=== PATIENT | male | born 1955 | race Caucasian/White ===

== ENCOUNTER 2018-03-16 09:30 | Inpatient (IN) | payer OTHER ==
[2018-03-31] MEDS ORDERED: METOCLOPRAMIDE 10 MG TABLET PO ONE (06:00)
[2018-03-31] MEDS ORDERED: FAMOTIDINE 20MG TABLET PO ONE (06:00)
[2018-03-31] MEDS ORDERED: CELECOXIB 100 MG CAPSULE PO ONE (06:00)
[2018-03-31] MEDS ORDERED: MECLIZINE 25 MG TABLET PO ONE (06:00)
[2018-03-31] MEDS ORDERED: CEFAZOLIN 2 Gram 2 GM/50 ML BAG IVPB ONE (06:00)
[2018-03-31] MEDS ORDERED: VANCOMYCIN HCL 1,000 MG in DEXTROSE 5 % IN WATER 250 ML IVPB ONE ×2 (06:00)
[2018-03-31 10:36] LABS: ABO GROUP O; ANTIBODY SCREEN NEGATIVE (NEGATIVE); RH TYPE POSITIVE
[2018-03-31] MEDS ORDERED: HYDROMORPHONE HCL 2 MG/ML VIAL IM PRN (13:35)
[2018-03-31] MEDS ORDERED: DIPHENHYDRAMINE HCL 25 MG CAPSULE PO PRN (13:35)
[2018-03-31] MEDS ORDERED: MAGNESIUM HYDROXIDE 30 ML UDC PO PRN (13:35)
[2018-03-31] MEDS ORDERED: AL HYDROX/MAG HYDROX 30ML UD PO PRN (13:35)
[2018-03-31] MEDS ORDERED: NALOXONE 0.4 MG/1 ML VIAL IVP PRN (13:35)
[2018-03-31] MEDS ORDERED: BISACODYL 10 MG SUPP RC PRN (13:35)
[2018-03-31] MEDS ORDERED: TRAMADOL HCL 50 MG TABLET PO PRN (13:35)
[2018-03-31] MEDS ORDERED: ACETAMINOPHEN 325 MG TAB PO PRN (13:35)
[2018-03-31] MEDS ORDERED: KETOROLAC 30 MG/ML VIAL IVP PRN ×2 (13:35)
[2018-03-31] MEDS ORDERED: ONDANSETRON HCL IV 4 MG/2 ML VIAL IVP PRN (13:35)
[2018-03-31] MEDS ORDERED: ZOLPIDEM TARTRATE 5 MG TABLET PO PRN (13:35)
[2018-03-31] MEDS ORDERED: HYDROCODONE/APAP 10/325 TABLET PO PRN (13:35)
[2018-03-31] MEDS ORDERED: ACETAMINOPHEN W/ CODEINE 300MG/60MG TABLET PO PRN ×2 (13:35)
[2018-03-31] MEDS ORDERED: ROPIVACAINE HCL (NAROPIN) /PF 5MG/ML 20ML VIAL IV ONE (14:31)
[2018-03-31] MEDS ORDERED: TRANEXAMIC ACID 1,000 MG/10 ML ML IV ONE ×2 (14:31→15:48)
[2018-03-31] MEDS ORDERED: HYDROMORPHONE PF 1MG/ML **AMPULE IV ONE (14:31)
[2018-03-31] MEDS ORDERED: 0.9 % SODIUM CHLORIDE 10 ML VIAL IVP ONE (14:31)
[2018-03-31] MEDS ORDERED: DEXAMETHASONE 4 MG/ML 1ML VIAL IVP ONE (14:31)
[2018-03-31] MEDS ORDERED: BUPIVACAINE 0.5% W/EPI MPF 30 ML VIAL IVP ONE (15:48)
[2018-03-31] MEDS ORDERED: KETOROLAC 30 MG/ML VIAL IVP ONE (16:21)
[2018-03-31] MEDS ORDERED: PROPOFOL 10 MG/ML VIAL IV ONE (16:21)
[2018-03-31] MEDS ORDERED: MIDAZOLAM HCL 2MG/2ML VIAL IV ONE (16:21)
[2018-03-31] MEDS ORDERED: ONDANSETRON HCL IV 4 MG/2 ML VIAL IVP ONE (16:21)
[2018-03-31] MEDS ORDERED: *PACU ONLY* KETAMINE HCL 10 MG/ML (20ML) VIAL IV ONE (16:21)
[2018-03-31] MEDS: HYDROCODONE/APAP 10/325 TABLET PO PRN ×2 (17:06→22:36)
--- NOTE | 2018-03-31 17:08 | Rehab Evaluation ---
Patient Information - Patient Information Diagnosis: DJD L knee Ordered Treatment: PT Evaluate and Treat Status: Initial Evaluation Surgery: Yes (L TKA) Date of Surgery: 03/31/18 Past Medical/Surgical Hx: PAST MEDICAL/SURGICAL HISTORY Past Surgical History right knee scope hydrocelectomy c scope PMH - Respiratory Hx Respiratory Disorders Yes Hx Asthma Yes: as a child PMH - Cardiovascular Hx Cardiovascular Disorders Yes Hx Hypertension Yes: on meds good control Exercise Tolerance Good Comment: high cholesterol PMH - Neuro Hx Neurological Disorders No PMH - GI Hx Gastrointestinal Disorders No PMH - Hx Genitourinary Disorders No PMH - Endocrine Hx Endocrine Disorders No PMH - Musculoskeletal Hx Musculoskeletal Disorders Yes Hx Arthritis Yes: knees PMH - Psych Hx Psychiatric Problems Yes Hx Anxiety Yes: sometimes Comment: claustrophobia PMH - Hematology/Oncology Hx Hematology/Oncology No Disorders Premorbid Status: Detail (Prior to surgery the patient was independent with all mobility.) Social History: Detail (The paiten lives in a one story home with his spouse with 2 steps, a landing and one step at the enterance. The patient's bathroom is equipped with a walk in shower with a shower bench and hand held shower head and an elevated toilet seat. The patient has a standard walker and has ordered a standard cane.) Precautions: [place], Fall, Other (WBAT on the L LE.) - Time With Patient Total Time Spent With Patient (Min): 30 Treatment Procedures: Detail (Initial Evaluation) Subjective Information - Subjective Information Per Patient (The patient had complaints of L knee pain level 3 at the highest using the 0- 10 pain scale.) Objective Data - Mental Status Patient Orientation: Oriented x3 - Visual Perception Appears within normal limits for therapeutic activities - ROM Not within normal limits (The patient's L knee AROM was not tested secondary to s/p surgery. All other LE AROM is WNL.) - Strength/Tone Not within normal limits (The patient's L LE strength was not tested s/p surgery , however it is WFL ie: the patient is able to acheive a SLR. The patient's R LE strength is generally 4+ to 5/5.) - Bed Mobility Independent (The patient was independent with supine to and from sit transfer and scooting up in bed.) - Transfers Independent (The patient is independent with sit to and from stand transfer.) - Balance Balance Sitting: Good Balance Standing: Good - Sensation Intact - Gait Detail (The patient ambulated with standard walker WBAT on the L LE a distance of 100 feet x 1 with supervision for safety and occasional verbal cues for proper use of walker.) Therapy Assessment - Therapy Assessment Detail (The patient was independent with bed mobility and transfers and required supervision for safety only.) Patient Education - Patient Education Teaching Topic: Exercise/Activity (The patient completed the following TKA exercises: gluteal sets, quad sets, hamstring sets, heel slides, SLR and ankle pumps all x 5-10 reps. The patient showed good understanding of HEP.) Response: Return Demonstration Teaching Method: Discussion, Handout Teaching Recipient: Patient Barriers To Learning: None Problem List - Problem List Physical Therapy Problem List: Detail (1) Decreased L knee AROM and L LE strength as to be expected following surgery. 2) Nonambulatory on stairs) Goals - Goals Physical Therapy Goals: 1) The patient will ambulate on stairs with supervision for safety only. 2) The patient will ambulate independently with standard walker, WBAT on the L LE with consistent proper use of walker. Prognosis - Prognosis Good Plan - Plan Physical Therapy Plan: 1-2 times a day until all inpatient PT goals have been met for gait training on levels and stairs.
[2018-03-31] MEDS: POTASSIUM CHLORIDE/D5-0.9%NACL 20 MEQ/1,000 ML BAG IV SCH ×2 (18:14→21:33)
[2018-03-31] MEDS: CEFAZOLIN 2 Gram 2 GM/50 ML BAG IVPB SCH (20:02)
--- NOTE | 2018-03-31 20:18 | Operative Note ---
DATE OF SURGERY: 03/31/2018 PREOPERATIVE DIAGNOSIS: END-STAGE ARTHROSIS OF THE LEFT KNEE. POSTOPERATIVE DIAGNOSIS: END-STAGE ARTHROSIS OF THE LEFT KNEE. PROCEDURE: Cemented left total knee arthroplasty using [employer] Charisma II components, with a size 7 Oxinium femur, size 7 stemmed tibial baseplate, a 9 mm highly-crosslinked lipped tibial insert, and a 35 mm all- plastic patella. STAFF SURGEON: JAVON WANG M.D. ANESTHESIA: SPINAL. PREPARATION: CHLORAPREP. INDIVIDUAL CONSIDERATIONS: NONE. PROCEDURE: The patient was taken to the Operating Room and placed supine on the operating table. He had the successful induction with spinal anesthetic. His left lower extremity was prepped and then draped in the usual fashion. The patient had a midline approach to the knee. The limb was elevated and the tourniquet was inflated to 215 mmHg. Sharp dissection was carried down through the skin and subcutaneous tissues. Small veins were coagulated with a Bovie. A medial arthrotomy was performed. The patella was everted and the knee was flexed. He had exposed bone in the medial and patellofemoral compartments. The fat pad was resected. The ACL was sacrificed. Provisional anterior meniscectomies were performed and the capsule was removed from the medial proximal tibia. The patient had an intramedullary femoral starting hole. This was done freehand. The intramedullary femoral cutting jig was placed in 7.0 degrees of valgus and adjusted for rotation, secured with pins for a 10 mm resection. The initial transverse cut was then made. The skin guide was then placed in the anterior and posterior pilot can router holes. It was found that a size 7 would be appropriate. The anterior and posterior cuts followed by chamfer cuts were made , osteophytes were removed, and a size 7 trial was placed and found to fit well. The tibia was brought forward and the remainder of the meniscal remnants were removed with a Bovie. The extra-articular tibial cutting jig was placed. It was cut in neutral with a 3-degree AP slope. Care was taken to adjust for rotation and flexion using the extra-articular alignment guide and bony landmarks. It was set for a 9 mm resection, keyed off the high lateral side, and secured with pins. When cutting the tibia, care was taken to preserve the PCL insertion on the tibia. After removing osteophytes, it was found that a size 7 would be appropriate. It was adjusted for rotation and secured with pins. With a 9 mm trial and the femoral trial, there was excellent motion and stability, ligamentous balance, rotation, and alignment were normal. The femoral pilot can router holes were impacted and the triflange tibial stamp was impacted and these trial components were removed. The patient had a thick patella and roughly 9 mm of bone was removed freehand. I then put the tourniquet down and hemostasis was obtained with a Bovie and it was placed back up again. We then thoroughly irrigated out the knee with pulsatile Betadine and saline to remove any visual or palpable debris. Bony surfaces were then dried. A size 7 stemmed tibial baseplate was cemented into place, followed by impaction of a 9 mm lipped highly-crosslinked tibial insert, followed by cementing in the size 7 Oxinium femur, followed by cementing in the 35 mm all-plastic patella. Implant surfaces were compressed, excess cement was removed, and after the cement had set, there was excellent motion and stability , ligamentous balance, rotation and alignment and patellofemoral tracking were normal and no lateral release was required. The tourniquet was let down and hemostasis was obtained with the Bovie. The periosteum and skin and subcu were infiltrated with 30 mL of 0.5% Marcaine with Epinephrine. The capsule was then closed with a running #2 Quill, the subcu was closed in layers with a running 0 Quill, and the skin was closed with aroldo. The patient did receive a gram of Tranexamic Acid IV preoperatively. I mixed a gram of Tranexamic Acid with 30 mL of saline and injected it into the knee through a sterile #18 gauge needle and a sterile Bulkee compressive GERRI-type dressing was applied. The patient tolerated the procedure well. Needle and sponge counts were correct. The estimated blood loss was 100 mL and he was taken back to Recovery in good condition. There were no complications. JOB NUMBER: [id number] MTDD
[2018-03-31] MEDS: DOCUSATE SODIUM 100 MG CAPSULE PO SCH (21:28)
[2018-04-01] MEDS: CEFAZOLIN 2 Gram 2 GM/50 ML BAG IVPB SCH ×3 (03:25→13:24)
[2018-04-01] MEDS: POTASSIUM CHLORIDE/D5-0.9%NACL 20 MEQ/1,000 ML BAG IV SCH ×2 (05:51→14:53)
[2018-04-01 06:33] LABS: HEMATOCRIT 32.8 % (42.0-52.0)
[2018-04-01 07:01] LABS: BLOOD UREA NITROGEN 13 mg/dL (8-23); CREATININE 0.8 mg/dL (0.7-1.2); EST GLOMERULAR FILTRATION RATE > 60 mL/min; GLUCOSE,RANDOM 121 mg/dL (74-109)
[2018-04-01] MEDS: HYDROCODONE/APAP 10/325 TABLET PO PRN ×2 (09:09→14:55)
[2018-04-01] MEDS: DOCUSATE SODIUM 100 MG CAPSULE PO SCH (09:10)
[2018-04-01] MEDS ORDERED: MULTIVITAMINS/MINERALS TABLET PO SCH (10:00)
[2018-04-01] MEDS ORDERED: PATIENT OWN MED: AMLODIPINE 5 MG PO SCH (10:00)
[2018-04-01] MEDS ORDERED: FERROUS SULFATE 325 MG TAB PO SCH (10:00)
[2018-04-01] MEDS ORDERED: HCTZ PO SCH (10:00)
[2018-04-01] MEDS ORDERED: LOSARTAN PO SCH (10:00)
[2018-04-01] MEDS ORDERED: RIVAROXABAN 10 MG TABLET PO SCH (10:00)
--- NOTE | 2018-04-01 10:41 | Physical Therapy Tx Note ---
Physical Therapy Tx Note - Treatment Note Tolerated: Good Total Time Spent With Patient: 25 Physical Therapy Tx Note: Detail (The patient was in bed and had minimal complaints of pain when PT arrived. The patient completed all his TKA exercises using proper technique. The patient ambulated with standard walker a distance of 200 feet x 1 independently WBAT on the L LE. The patient ambulated on 3 steps with use one railing and folded walker with supervision for safety only. The patient has met all inpatient PT goals.) Physical Therapy Problem List: Detail (1) Decreased L knee AROM and L LE strength as to be expected following surgery. 2) Nonambulatory on stairs) Physical Therapy Goals: GOALS MET: 1) The patient will ambulate on stairs with supervision for safety only. 2) The patient will ambulate independently with standard walker, WBAT on the L LE with consistent proper use of walker. Prognosis: Good Physical Therapy Plan: The patient has met all inpatient PT goals and is discharged from inpt. PT. The patient is to continue with a Home Health PT.
--- NOTE | 2018-04-01 14:40 | Rehab Evaluation ---
Patient Information - Patient Information Diagnosis: DJD L knee Ordered Treatment: OT Evaluate and Treat Status: Initial Evaluation Surgery: Yes (L TKA) Date of Surgery: 03/31/18 Past Medical/Surgical Hx: PAST MEDICAL/SURGICAL HISTORY Past Surgical History right knee scope hydrocelectomy c scope PMH - Respiratory Hx Respiratory Disorders Yes Hx Asthma Yes: as a child PMH - Cardiovascular Hx Cardiovascular Disorders Yes Hx Hypertension Yes: on meds good control Exercise Tolerance Good Comment: high cholesterol PMH - Neuro Hx Neurological Disorders No PMH - GI Hx Gastrointestinal Disorders No PMH - Hx Genitourinary Disorders No PMH - Endocrine Hx Endocrine Disorders No PMH - Musculoskeletal Hx Musculoskeletal Disorders Yes Hx Arthritis Yes: knees PMH - Psych Hx Psychiatric Problems Yes Hx Anxiety Yes: sometimes Comment: claustrophobia PMH - Hematology/Oncology Hx Hematology/Oncology No Disorders Premorbid Status: Detail (Prior to surgery the patient was independent with all mobility and I/ADL tasks.) Social History: Detail (The patient lives in a one story home with his spouse with 2 steps, a landing, and one additional step at the garage enterance. The patient's bathroom is equipped with a walk in shower, shower bench, hand held shower head, and an elevated toilet seat. The patient has a standard walker, leg resident care aide, shoe horn, and has ordered a standard cane. Pt's daughter will be there to assist if needed.) Precautions: [place], Fall, Other (WBAT on the L LE.) - Time With Patient Total Time Spent With Patient (Min): 20 Treatment Procedures: Detail (OT Evaluation: Low) Subjective Information - Subjective Information Per Patient (Pt stated he is going to receive home health care upon returning home.) Objective Data - Pain Pain Present: Yes Pain Scale Used: Numeric (1 - 10) (2/10 at rest and 5/10 after completing ADL tasks) - Mental Status Patient Orientation: Oriented x3 - Visual Perception Appears within normal limits for therapeutic activities - ROM Within normal limits (Informally tested: Pt was able to participate in ADL tasks ) - Strength/Tone Within normal limits (Informally tested: Pt was able to participate in ADL tasks ) - Coordination Appears within normal limits for therapeutic activities - Bed Mobility Independent (Modified Ind. as head of bed was raised.) - Transfers Independent (EOB Sit<>stand with standard walker Indp. with one VC for proper hand placement upon sitting.) - Balance Balance Sitting: Good Balance Standing: Fair (Utilizes standed walker for safety) - ADL's/IADL's Detail (Educated pt on adaptive LB dressing techniques to ensure safety and independence. Pt demonstrated understanding of adaptive LB dressing techniques while doffing socks and donning shoes and shorts. Pt was also Indp. with UB dressing. Standing toileting (without UE support) and hygeine (hand washing) Indp. with standard walker. Reviewed with pt and he was able to verbalize showering technique.) Therapy Assessment - Therapy Assessment Detail (Educated/trained pt in adaptive LB dressing techniques and participated in various ADL tasks for safety and independence. Pt is Indp. and safe with LB dressing. Pt lives with spouse who is currently out of town but has daughter available to help if needed. Pt no longer requires inpatient OT services at this time.) Patient Education - Patient Education Teaching Method: Discussion Teaching Recipient: Patient Barriers To Learning: None Problem List - Problem List Physical Therapy Problem List: Detail (1) Decreased L knee AROM and L LE strength as to be expected following surgery. 2) Nonambulatory on stairs) Goals - Goals Physical Therapy Goals: GOALS MET: 1) The patient will ambulate on stairs with supervision for safety only. 2) The patient will ambulate independently with standard walker, WBAT on the L LE with consistent proper use of walker. Prognosis - Prognosis Good Plan - Plan Physical Therapy Plan: The patient has met all inpatient PT goals and is discharged from inpt. PT. The patient is to continue with a Home Health PT. Occupational Therapy Plan: D/C from inpatient OT services at this time. Pt stated he had no questions or concerns upon returning home.
--- NOTE | 2018-04-01 19:49 | Discharge Summary ---
DATE OF ADMISSION: 03/31/2018 DATE OF DISCHARGE: 04/01/2018 DATE OF SURGERY: 03/31/2018 HISTORY: Mr. Muller is a delightful 62-year-old male who presents with end- stage arthrosis of his left knee. He was admitted after left total knee arthroplasty. Postoperatively he did well. His hospital course was unremarkable. Discharge hemoglobin was 11. He did not require transfusion. DISCHARGE INSTRUCTIONS: The plan is to discharge him to home in the care of his family. Home PT and Visiting Nurse has been arranged. He will be given [place] for pain and Xarelto followed by Aspirin for DVT prophylaxis. His sutures will be removed in two weeks. He will follow-up in my office in four weeks. His discharge condition was good. FINAL DIAGNOSIS/PRIMARY DIAGNOSIS: END-STAGE ARTHROSIS OF THE LEFT KNEE. OPERATIONS AND PROCEDURES: CEMENTED LEFT TOTAL KNEE ARTHROPLASTY. JOB NUMBER: [id number] MTDD
[2018-04-01] MEDS ORDERED: PRAVASTATIN 80 MG PO SCH (22:00)
[2018-04-01] MEDS ORDERED: ASPIRIN 81 MG TABEC PO SCH (22:00)
== END 2018-04-01 18:30 | disposition home health service (06) | DRG 470 ==
LOC: MEDSURG 03-31 08:56
PROVIDERS: ADMIT Orthopaedic Surgery; ATTEND Orthopaedic Surgery
PROC: 0SRD069 Replacement of Left Knee Joint with Oxidized Zirconium on Polyethylene Synthetic Substitute, Cemented, Open Approach (ICD-10-PCS; principal; 2018-03-31 11:00)
DX: M17.12 Unilateral primary osteoarthritis, left knee (principal); I10 Essential (primary) hypertension; E78.00 Pure hypercholesterolemia, unspecified
CPT/HCPCS: 80048; 85014; 85018; 86850; 86900; 86901; 97530; J1170; J1885; J2405; J3480; J7060

== ENCOUNTER 2019-11-23 12:04 | Day surgery (SDC) | payer OTHER ==
[~2019-11-23 12:04] MED LIST: CEFAZOLIN 2 Gram 2 GM/50 ML BAG IVPB ONE; CELECOXIB 100 MG CAPSULE PO ONE; FAMOTIDINE 20MG TABLET PO ONE; MECLIZINE 25 MG TABLET PO ONE; METOCLOPRAMIDE 10 MG TABLET PO ONE; VANCOMYCIN 1GM/200ML PREMIX 1 GM/200 ML PIGGYBACK IVPB ONE
[2019-11-23] MEDS ORDERED: MIDAZOLAM HCL 2MG/2ML VIAL IV ONE (12:05)
[2019-11-23] MEDS ORDERED: DEXAMETHASONE 4 MG/ML 1ML VIAL IVP ONE (12:05)
[2019-11-23] MEDS ORDERED: PROPOFOL 10 MG/ML VIAL IV ONE (12:05)
[2019-11-23] MEDS ORDERED: LIDOCAINE 2% MDV (20MG/ML) 20ML VIAL IV ONE (12:05)
[2019-11-23] MEDS ORDERED: ROPIVACAINE HCL (NAROPIN) /PF 5MG/ML 20ML VIAL IV ONE (12:05)
[2019-11-23] MEDS ORDERED: RINGERS SOLUTION,LACTATED 1,000 ML IV ONE ×3 (13:15→15:45)
[2019-11-23 13:44] LABS: ABO GROUP O; ANTIBODY SCREEN NEGATIVE (NEGATIVE); RH TYPE POSITIVE
[2019-11-23] MEDS ORDERED: BUPIVACAINE 0.5% W/EPI MPF 30 ML VIAL SQ ONE (14:40)
[2019-11-23] MEDS ORDERED: TRANEXAMIC ACID 1,000 MG/10 ML ML IV ONE (14:40)
[2019-11-23] MEDS ORDERED: TRANEXAMIC ACID 1,000 MG/10 ML ML IU ONE (14:40)
[2019-11-23] MEDS ORDERED: ZOLPIDEM TARTRATE 5 MG TABLET PO PRN (15:57)
[2019-11-23] MEDS ORDERED: BISACODYL 10 MG SUPP RC PRN (15:57)
[2019-11-23] MEDS ORDERED: DIPHENHYDRAMINE HCL 25 MG CAPSULE PO PRN (15:57)
[2019-11-23] MEDS ORDERED: KETOROLAC 30 MG/ML VIAL IVP PRN (15:57)
[2019-11-23] MEDS ORDERED: MAGNESIUM HYDROXIDE 30 ML UDC PO PRN (15:57)
[2019-11-23] MEDS ORDERED: NALOXONE 0.4 MG/1 ML VIAL IVP PRN (15:57)
[2019-11-23] MEDS ORDERED: HYDROCODONE/APAP 10/325 TABLET PO PRN (15:57)
[2019-11-23] MEDS ORDERED: ONDANSETRON HCL IV 4 MG/2 ML VIAL IVP PRN (15:57)
[2019-11-23] MEDS ORDERED: ACETAMINOPHEN 325 MG TAB PO PRN (15:57)
[2019-11-23] MEDS ORDERED: TRAMADOL HCL 50 MG TABLET PO PRN (15:57)
[2019-11-23] MEDS ORDERED: AL HYDROX/MAG HYDROX 30ML UD PO PRN (15:57)
[2019-11-23] MEDS ORDERED: HYDROMORPHONE HCL 2 MG/ML VIAL IM PRN (15:57)
[2019-11-23] MEDS ORDERED: ACETAMINOPHEN W/ CODEINE 300MG/60MG TABLET PO PRN ×2 (15:57)
[2019-11-23] MEDS ORDERED: POTASSIUM CHLORIDE/D5-0.9%NACL 20 MEQ/1,000 ML BAG IV SCH (17:00)
[2019-11-23] MEDS: DOCUSATE SODIUM 100 MG CAPSULE PO SCH (21:16)
[2019-11-23] MEDS: METOPROLOL TART 25 MG TABLET PO SCH (21:16)
[2019-11-23] MEDS: CEFAZOLIN 2 Gram 2 GM/50 ML BAG IVPB SCH (21:17)
[2019-11-23] MEDS ORDERED: SIMVASTATIN 20 MG TABLET PO SCH (22:00)
[2019-11-23] MEDS ORDERED: ASPIRIN 81 MG TABEC PO SCH (22:00)
[2019-11-23] MEDS: HYDROCODONE/APAP 10/325 TABLET PO PRN (22:28)
[2019-11-24] MEDS: CEFAZOLIN 2 Gram 2 GM/50 ML BAG IVPB SCH (05:42)
[2019-11-24 06:49] LABS: HEMATOCRIT 39.2 % (42.0-52.0); HEMOGLOBIN 13.4 gm/dl (14.0-18.0)
[2019-11-24 07:03] LABS: BLOOD UREA NITROGEN 15 mg/dL (8-23); EST GLOMERULAR FILTRATION RATE > 60 mL/min; GLUCOSE,RANDOM 166 mg/dL (74-109)
[2019-11-24] MEDS: HYDROCODONE/APAP 10/325 TABLET PO PRN ×2 (08:38→12:30)
[2019-11-24] MEDS ORDERED: AMLODIPINE BESYLATE 5MG TAB PO SCH (10:00)
[2019-11-24] MEDS ORDERED: FERROUS SULFATE 325 MG TAB PO SCH (10:00)
[2019-11-24] MEDS ORDERED: RIVAROXABAN 10 MG TABLET PO SCH (10:00)
[2019-11-24] MEDS ORDERED: MULTIVITAMINS/MINERALS TABLET PO SCH (10:00)
[2019-11-24] MEDS ORDERED: HYDROCHLOROTHIAZIDE 25 MG TABLET PO SCH (10:00)
--- NOTE | 2019-11-24 10:32 | Rehab Evaluation ---
Patient Information - Patient Information Diagnosis: right knee primary OA Ordered Treatment: OT Evaluate and Treat Status: Initial Evaluation Surgery: Yes (right TKA) Date of Surgery: 11/23/19 Past Medical/Surgical Hx: PAST MEDICAL/SURGICAL HISTORY Surgery to Affected Area? No Recent Surgery? Past Surgical History LTKA 5-29-18 right knee scope hydrocelectomy c scope PMH - Respiratory Hx Respiratory Disorders Yes Hx Asthma Yes: as a child Hx of URI Yes: RESOLVED PMH - Cardiovascular Hx Cardiovascular Disorders Yes Hx Hypertension Yes: on meds good control Exercise Tolerance Good Comment: high cholesterol PMH - Neuro Hx Neurological Disorders No PMH - GI Hx Gastrointestinal Disorders No PMH - Hx Genitourinary Disorders No PMH - Endocrine Hx Endocrine Disorders No PMH - Musculoskeletal Hx Musculoskeletal Disorders Yes Hx Arthritis Yes: knees PMH - Psych Hx Psychiatric Problems Yes Hx Anxiety Yes: sometimes Comment: claustrophobia PMH - Hematology/Oncology Hx Hematology/Oncology No Disorders Premorbid Status: Detail (Pt lives with spouse in a 1 story house with 3 steps and 1 railing at the entrance. He has a walk in shower with a seat and hand held shower head and an elevated toilet. There are no grab bars in the bathroom. He is Ind with meal prep and laundry tasks and he has a cyber intel planner 1 x per week. He has a walker and a cane as well as a corn husk baler and sock aid.) Precautions: [place], Fall, Other (WBAT right LE) - Time With Patient Total Time Spent With Patient (Min): 35 Treatment Procedures: Detail (OT eval low complexity) Subjective Information - Subjective Information Per Patient Objective Data - Pain Pain Present: Yes (02/10) - Mental Status Patient Orientation: Oriented x3 - Visual Perception Appears within normal limits for therapeutic activities - ROM Within normal limits (Rishi UE AROM WNL) - Strength/Tone Within normal limits (Rishi UE strength WNL) - Coordination Appears within normal limits for therapeutic activities - Bed Mobility Independent (Ind with supine to sit and sit to supine.) - Transfers Independent (Ind with sit to stand from EOB) - Balance Balance Sitting: Good Balance Standing: Good - Sensation Intact - Gait Detail (Pt ambulating in room with 2 wheeled walker Indly.) - ADL's/IADL's Detail (Reviewed modified LE dressing techniques, pt was able to demonstrate Ind with donning pants and slip on shoes Indly. Reviewed kitchen and shower safety and modifications, pt verbalized understanding.) Therapy Assessment - Therapy Assessment Detail (Pt is Ind with modified LE dressing techniques.) Problem List - Problem List Occupational Therapy Problem List: Detail (No current IP OT problems identified.) Goals - Goals Occupational Therapy Goals: No current IP OT goals identified. Prognosis - Prognosis Good Plan - Plan Occupational Therapy Plan: Pt is discharged from IP OT at this time. Thank you for this referral.
[2019-11-24] MEDS: METOPROLOL TART 25 MG TABLET PO SCH (10:37)
[2019-11-24] MEDS: DOCUSATE SODIUM 100 MG CAPSULE PO SCH (10:38)
--- NOTE | 2019-11-24 11:14 | Rehab Evaluation ---
Patient Information - Patient Information Diagnosis: right knee primary OA Ordered Treatment: PT Evaluate and Treat Status: Initial Evaluation Surgery: Yes (right TKA) Date of Surgery: 11/23/19 Past Medical/Surgical Hx: PAST MEDICAL/SURGICAL HISTORY Surgery to Affected Area? No Recent Surgery? Past Surgical History LTKA 5-29-18 right knee scope hydrocelectomy c scope PMH - Respiratory Hx Respiratory Disorders Yes Hx Asthma Yes: as a child Hx of URI Yes: RESOLVED PMH - Cardiovascular Hx Cardiovascular Disorders Yes Hx Hypertension Yes: on meds good control Exercise Tolerance Good Comment: high cholesterol PMH - Neuro Hx Neurological Disorders No PMH - GI Hx Gastrointestinal Disorders No PMH - Hx Genitourinary Disorders No PMH - Endocrine Hx Endocrine Disorders No PMH - Musculoskeletal Hx Musculoskeletal Disorders Yes Hx Arthritis Yes: knees PMH - Psych Hx Psychiatric Problems Yes Hx Anxiety Yes: sometimes Comment: claustrophobia PMH - Hematology/Oncology Hx Hematology/Oncology No Disorders Premorbid Status: Detail (Pt lives with spouse in a 1 story house with 3 steps and 1 railing at the entrance. He has a walk in shower with a seat and hand held shower head and an elevated toilet. There are no grab bars in the bathroom. He is Ind with meal prep and laundry tasks and he has a bobbin winder tender 1 x per week. He has a walker and a cane as well as a conveyor system operator and sock aid.) Precautions: [place], Fall, Other (WBAT right LE) - Time With Patient Total Time Spent With Patient (Min): 30 Treatment Procedures: Detail (Initial Evaluation, low complexity, gait training) Subjective Information - Subjective Information Per Patient (The patient has minimal complaints of R knee pain, level 3 at the highest using 0-10 pain scale.) Objective Data - Mental Status Patient Orientation: Oriented x3 - Visual Perception Appears within normal limits for therapeutic activities - ROM Not within normal limits (The patient's R knee AROM is limited s/p surgery as to be expected. All other LE AROM is WFL.) - Strength/Tone Not within normal limits (The patient's LE strength was not tested s/p surgery however is functional.) - Bed Mobility Independent (The patient was independent with sit to supine and scooting up in bed.) - Transfers Independent (The patient is independent with sit to and from stand transfer.) - Balance Balance Sitting: Good Balance Standing: Good - Sensation Intact - Gait Detail (The patient ambulated with standard walker a distance of 130 feet x 1 WBAT on the R LE independently. The patient ambulated on stairs with use of railing and std. cane using proper technique with supervision for safety only.) Therapy Assessment - Therapy Assessment Detail (The patient was independent with bed mobility, transfers and ambulation. The patient has met all inpt. goals and is discharged from inpt. PT. The pt. is to receive Home PT.) Patient Education - Patient Education Teaching Topic: Exercise/Activity (The patient completed the following TKA HEP: seated heel slides, quad sets, hamstring sets, gluteal sets, ankle pumps and SLR.) Response: Return Demonstration Teaching Method: Discussion, Demonstration, Handout Teaching Recipient: Patient Barriers To Learning: None Problem List - Problem List Physical Therapy Problem List: Detail (Decreased R knee AROM and decreased R LE strength.) Occupational Therapy Problem List: Detail (No current IP OT problems identified.) Goals - Goals Physical Therapy Goals: The patient has met all inpt. PT goals. Occupational Therapy Goals: No current IP OT goals identified. Plan - Plan Physical Therapy Plan: The patient is discharged from inpt. PT and is to continue with Home PT. Occupational Therapy Plan: Pt is discharged from IP OT at this time. Thank you for this referral.
--- NOTE | 2019-11-29 08:11 | Operative Note ---
DATE OF SURGERY: 11/23/2019 PREOPERATIVE DIAGNOSIS: End-stage arthrosis of the right knee. POSTOPERATIVE DIAGNOSIS: End-stage arthrosis of the right knee. OPERATION: Cemented right total knee arthroplasty using [employer] components with a size 7 Oxinium femur, a size 7 stemmed tibia baseplate, a 9 mm lipped highly crosslinked tibial insert, and a 35 mm all-plastic patella. STAFF SURGEON: Francisco Garcia MD ANESTHESIA: Spinal. PREPARATION: Chloraprep. INDIVIDUAL CONSIDERATIONS: None. PROCEDURE: The patient was taken to the operating room, placed supine on the operating room table. He had a successful induction of a spinal anesthetic. The right lower extremity was prepped and draped in the usual fashion. The patient had a midline approach to the knee. The limb was elevated and tourniquet was inflated to 250 mmHg. Sharp dissection carried down through skin and subcutaneous tissue. Small veins were coagulated with a Bovie. A medial arthrotomy was performed. The patella was everted and the knee was flexed. The patient had exposed bone in the medial and patellofemoral compartments. Fat pad was resected, ACL was sacrificed, and provisional anterior meniscectomies were performed. The capsule was released off the medial proximal tibia. The initial femoral private pilot hole was then made freehand. The intramedullary femoral cutting jig was placed. It was cut in 7.0 degrees of valgus and adjusted for rotation and secured with pins for a 10 mm resection. The initial transverse cut was then made. The skin guide was placed in the anterior and posterior private pilot holes in 3 degrees of external rotation. The private pilot holes were drilled and it was found that a size 7 would be appropriate. The anterior and posterior cuts followed by chamfer cuts were made. Osteophytes removed, and a size 7 trial was placed and found to fit well. The tibia was brought forward, and the remainder of the meniscal remnants removed with a Bovie. The extraarticular tibial cutting jig was placed. It was cut in neutral with a 3-degree AP slope. It was set for a 9 mm resection keyed off the high lateral side and secured with pins. When cutting the tibia, care was taken to preserve the PCL insertion on the tibia. After removing osteophytes, I could fit a size 7 baseplate trial. It was adjusted for rotation and secured with pins. With a 10 mm insert and a size 7 trial, there was excellent motion and stability. Ligamentous balance and rotation alignment were thought to be normal. Femoral private pilot holes were impacted and the tibial keel stamp was impacted, and these trial components were removed. The patient had a thick patella and roughly 9 mm of bone was removed freehand. I could easily fit a 35 patella, and the 3 private pilot holes were drilled. The tourniquet was let down briefly to get bleeders posteriorly and then placed back up again. Thorough irrigation now with pulsatile Betadine and saline to remove any visual or palpable debris. Bony surfaces were then dried. They were dried again with the CarboJet. A size 7 stemmed tibia baseplate was cemented into place followed by impaction of the 9 mm lipped highly crosslinked tibial insert followed by cementing in the size 7 Oxinium femur followed by cementing in the 35 mm patella. The implant surfaces were compressed. After the cement had set, there was excellent motion and stability. Ligamentous balance, rotation alignment, and patellofemoral tracking were normal. No lateral release was required. Tourniquet was let down. Hemostasis was obtained with a Bovie. Final irrigation with pulsatile Betadine and saline. The skin and periosteum were infiltrated with 30 mL of 0.5% Marcaine with epinephrine. The capsule was then closed with a running #2 quill, subcu was closed in layers with running 0 quill, skin was closed with aroldo. A sterile bulky compressive GERRI-type dressing was applied. The patient tolerated the procedure well. Needle and sponge counts were correct. Estimated blood loss was minimal, and he was taken back to recovery in good condition. There were no complications. [facility]ITAL[facility]ema
== END 2019-11-24 15:08 | disposition home health service (06) ==
LOC: SUR 12:04 → MEDSURG 16:43 → SUR 11-24 15:08
PROVIDERS: ATTEND Orthopaedic Surgery
DX: M17.11 Unilateral primary osteoarthritis, right knee (principal); I10 Essential (primary) hypertension; E78.00 Pure hypercholesterolemia, unspecified
CPT/HCPCS: 76942; 80048; 85014; 85018; 86850; 86900; 86901; C1776; J3370; J7120